=== PATIENT | female | born 1980 | race Caucasian/White ===

== ENCOUNTER → 2017-02-16 | Outpatient (CLI) | payer OTHER ==
[~2017-02-16] MED LIST: PERCOCET 325 MG1 TA2 PO; PRENATAL1 TA1 PO; ZANTAC 150MG T150 MG PO; ZOLOFT 50MG50 MG PO
== END ==
LOC: COL.RAD 07:07
DX: N28.89 Other specified disorders of kidney and ureter (principal); Z90.49 Acquired absence of other specified parts of digestive tract

== ENCOUNTER 2019-03-14 15:45 | Outpatient (RCR) | payer BC | END 2019-04-17 11:33 | disposition home or self-care (01) | LOC: WSC 15:45 | DX: R42 Dizziness and giddiness (principal) ==

== ENCOUNTER → 2019-05-31 | Outpatient (CLI) | payer BC | LOC: MC.RAD 08:35 | DX: Z12.31 Encounter for screening mammogram for malignant neoplasm of breast (principal) ==

== ENCOUNTER → 2019-06-08 | Outpatient (CLI) | payer BC | LOC: COL.CARD 13:32 | DX: R00.0 Tachycardia, unspecified (principal); R06.02 Shortness of breath ==

== ENCOUNTER → 2020-07-09 | Outpatient (CLI) | payer BC | LOC: MC.RAD 06-24 13:45 | DX: Z12.31 Encounter for screening mammogram for malignant neoplasm of breast (principal) ==

== ENCOUNTER → 2021-01-13 | Outpatient (CLI) | payer BC ==
[2021-01-13 16:03] LABS: BASO % 0.3 % (0.0-2.0); EOS # 0.1 (0.0-0.7); EOS % 1.5 % (0-4.0); GRAN # 6.2 (1.4-6.5); GRAN % 65.1 % (42.2-75.2); HEMATOCRIT 40.9 % (37.0-47.0); HEMOGLOBIN 13.5 g/dl (12.5-16.0); LYMPH # 2.5 (1.2-3.4); LYMPH % 26.3 % (20.0-51.0); MEAN CELL VOLUME 88 fl (80.0-100.0); MEAN CORPUSCULAR HEMOGLOBIN 29 pg (27.0-31.0); MEAN CORPUSCULAR HGB CONC 33 g/dl (33.0-37.0); MEAN PLATELET VOLUME 9.4 fl (7.4-10.4); MONO # 0.6 (0.1-0.6); MONO % 6.6 % (1.7-9.3); PLATELET COUNT 320 K/mm3 (130-400); RED BLOOD COUNT 4.66 M/mm3 (4.10-5.30); REDCELL DISTRIBUTION WIDTH-CV 12.9 % (11.5-14.5)
[2021-01-13 16:06] LABS: ALBUMIN 4.5 gm/dL (3.5-5.0); BILIRUBIN,TOTAL 0.5 mg/dL (0.0-1.0); CALCIUM 9.4 mg/dL (8.4-10.2); CREATININE, serum 1.35 (0.52-1.25); POTASSIUM 4.1 mmol/L (3.4-5.0)
== END ==
LOC: COL.RAD 14:24
PROVIDERS: Nurse Practitioner Family
DX: N13.2 Hydronephrosis with renal and ureteral calculous obstruction (principal); Z90.49 Acquired absence of other specified parts of digestive tract; Z90.710 Acquired absence of both cervix and uterus

== ENCOUNTER → 2021-08-18 | Outpatient (CLI) | payer BC | LOC: MC.RAD 07:45 | DX: Z12.31 Encounter for screening mammogram for malignant neoplasm of breast (principal) ==

== ENCOUNTER → 2021-12-22 | Outpatient (CLI) | payer BC ==
[2021-12-22 14:52] LABS: BASO % 0.4 % (0.0-2.0); EOS # 0.1 K/mm3 (0.0-0.7); EOS % 1.1 % (0.0-4.0); GRAN # 5.7 K/mm3 (1.4-6.5); GRAN % 66.4 % (42.2-75.2); HEMATOCRIT 41.8 % (37.0-47.0); HEMOGLOBIN 13.7 g/dl (12.5-16.0); LYMPH # 2.3 K/mm3 (1.2-3.4); LYMPH % 26.4 % (20.0-51.0); MEAN CELL VOLUME 87 fl (80.0-100.0); MEAN CORPUSCULAR HEMOGLOBIN 28 pg (27-31); MEAN CORPUSCULAR HGB CONC 33 g/dl (33.0-37.0); MEAN PLATELET VOLUME 9.7 fl (7.4-10.4); MONO # 0.5 K/mm3 (0.1-0.6); MONO % 5.3 % (1.7-9.3); PLATELET COUNT 303 K/mm3 (130-400); RED BLOOD COUNT 4.83 M/mm3 (4.10-5.30); REDCELL DISTRIBUTION WIDTH-CV 13.6 % (11.5-14.5)
[2021-12-22 15:12] LABS: ALANINE AMINOTRANSFERASE 31 U/L (0-55); ALBUMIN 4.2 gm/dL (3.5-5.0); ALKALINE PHOSPHATASE 120 U/L (40-150); ANION GAP 10 mmol/L (7-16); AST,SGOT 27 U/L (5-34); BILIRUBIN,TOTAL 0.5 mg/dL (0.2-1.2); BLOOD UREA NITROGEN 9 mg/dL (7-19); CALCIUM 9.4 mg/dL (8.4-10.2); CARBON DIOXIDE 24 mmol/L (22-29); CHLORIDE 106 mmol/L (98-107); CREATININE, serum 0.77 mg/dL (0.57-1.11); GLUCOSE 91 mg/dL (70-99); POTASSIUM 3.8 mmol/L (3.5-4.5); SODIUM 140 mmol/L (136-145); TOTAL PROTEIN 8.1 gm/dL (6.2-8.1)
[2021-12-22 15:32] LABS: TSH w REFLEX 2.171 uIU/mL (0.350-4.940)
[2021-12-22 15:35] LABS: TROPONIN-I < 0.010 ng/mL (0.00-0.033)
== END ==
LOC: COL.LAB 14:13
PROVIDERS: Family Medicine
DX: R07.9 Chest pain, unspecified (principal)

== ENCOUNTER → 2021-12-22 | Outpatient (CLI) | payer BC | LOC: COL.RAD 15:56 | DX: K76.0 Fatty (change of) liver, not elsewhere classified (principal) | CPT/HCPCS: Q9967 ==

== ENCOUNTER → 2022-07-14 | Outpatient (CLI) | payer BC | LOC: COL.CARD 09:52 | DX: R00.2 Palpitations (principal) ==

== ENCOUNTER 2023-02-11 21:07 | Emergency (ER) | payer OTHER ==
[~2023-02-11] VITALS: Ht 162.6 cm; Wt 109.1 kg
[~2023-02-11 21:07] MED LIST changes: +LIPITOR20 MG PO; +PAMELOR 25MG25 MG PO; +PRILOSEC 20MG20 MG PO; +PRILOSEC10 MG PO; +PRINIVIL5 MG PO; +TOPROL XL 25MG25 MG PO; +ZOLOFT 100MG100 MG PO
[2023-02-11 21:19] VITALS: TEMP 98
[2023-02-11 22:00] LABS: BASO # 0.1 K/mm3 (0.0-0.2); BASO % 0.5 % (0.0-2.0); EOS # 0.1 K/mm3 (0.0-0.7); EOS % 0.7 % (0.0-4.0); GRAN # 7.3 K/mm3 (1.4-6.5); GRAN % 70.7 % (42.2-75.2); HEMATOCRIT 40.8 % (37.0-47.0); LYMPH # 2.2 K/mm3 (1.2-3.4); LYMPH % 21.4 % (20.0-51.0); MEAN CELL VOLUME 88 fl (80.0-100.0); MEAN CORPUSCULAR HEMOGLOBIN 30 pg (27-31); MEAN CORPUSCULAR HGB CONC 34 g/dl (33.0-37.0); MEAN PLATELET VOLUME 9.9 fl (7.4-10.4); MONO # 0.6 K/mm3 (0.1-0.6); MONO % 6.2 % (1.7-9.3); PLATELET COUNT 292 K/mm3 (130-400); RED BLOOD COUNT 4.64 M/mm3 (4.10-5.30); REDCELL DISTRIBUTION WIDTH-CV 12.9 % (11.5-14.5)
[2023-02-11 22:15] LABS: ALBUMIN 4.2 gm/dL (3.5-5.0); BILIRUBIN,TOTAL 0.2 mg/dL (0.2-1.2); CREATININE, serum 0.83 mg/dL (0.57-1.11); POTASSIUM 3.9 mmol/L (3.5-4.5); TOTAL PROTEIN 7.9 gm/dL (6.2-8.1)
[2023-02-11 23:30] VITALS: BP 127/81; PULSE 97
== END 2023-02-11 23:30 | disposition home or self-care (01) ==
LOC: COL.ER 21:07
PROVIDERS: Nurse Practitioner
DX: S09.90XA Unspecified injury of head, initial encounter (principal); S00.83XA Contusion of other part of head, initial encounter; S60.222A Contusion of left hand, initial encounter; R10.9 Unspecified abdominal pain; Z23 Encounter for immunization; V47.9XXA Unspecified car occupant injured in collision with fixed or stationary object in traffic accident, initial encounter; Y92.410 Unspecified street and highway as the place of occurrence of the external cause
CPT/HCPCS: J2270; J2405; Q9967

== ENCOUNTER 2023-09-14 11:30 | Outpatient (RCR) | payer OTHER, BC | END 2023-09-20 | disposition home or self-care (01) | LOC: WSST | DX: R26.89 Other abnormalities of gait and mobility (principal); F07.81 Postconcussional syndrome; R41.89 Other symptoms and signs involving cognitive functions and awareness ==

== ENCOUNTER 2023-10-03 15:30 | Outpatient (RCR) | payer OTHER, BC | END 2023-10-20 | disposition home or self-care (01) | LOC: WSST | DX: F07.81 Postconcussional syndrome (principal); R48.9 Unspecified symbolic dysfunctions; R26.89 Other abnormalities of gait and mobility; R41.3 Other amnesia ==

== ENCOUNTER → 2023-11-22 | Outpatient (CLI) | payer BC | LOC: MC.RAD 09:28 | DX: Z12.31 Encounter for screening mammogram for malignant neoplasm of breast (principal); N64.89 Other specified disorders of breast ==

== ENCOUNTER → 2023-11-25 | Outpatient (CLI) | payer BC | LOC: MC.RAD 13:46 | DX: N64.89 Other specified disorders of breast (principal) ==

== ENCOUNTER 2024-03-16 12:32 | Day surgery (SDC) | payer BC ==
[~2024-03-16] VITALS: Ht 162.6 cm; Wt 110.5 kg
[~2024-03-16 12:32] MED LIST changes: +LR 1,000 ML IV SCH; +Ondansetron 4 MG/2 ML VIAL IV PRN
[2024-03-16 12:41] VITALS: BP 130/65; PULSE 80; TEMP 97.5
[2024-03-16] MEDS ORDERED: DEPAKOTE ER 50500 MG PO (12:50)
--- NOTE | 2024-03-16 13:07 | NUR ---
The patient ambulated back to [facility] independently using a steady gait and appeared to tolerate the activity well. Vital signs obtained. Consent signed. 20G IV started in right hand with one stick, LR infusing without difficulty. Assessment completed. Home medications reconcilled. Warm blanket provided. Call light is within reach. , Manjit, is at her bedside. Denies any further needs at this time.
[2024-03-16 14:17] VITALS: BP 110/50; PULSE 71; TEMP 97.9
[2024-03-16 14:30] VITALS: BP 116/74; PULSE 75
[2024-03-16 14:45] VITALS: BP 128/79; PULSE 78
--- NOTE | 2024-03-16 16:21 | NUR ---
[id number]: PT TO RECOVERY BAY FROM [facility]O [facility] S/P EGD/COLON WITH BX'S AND POLYPECTOMY A&O, PLACED ON MONITOR, VSS ON RA DENIES COMPLAINT RECEIVED REPORT AND ASSUMED CARE OF PT FROM SUDHEER SAVAGE SPOUSE AT BEDSIDE PROVIDED FOOD/FLUIDS, TOLERATING WELL PT HAS REMAINED A&O, NAD, VSS ON RA, TOLERATING PO, IS WITHOUT SIGNIFICANT COMPLAINT, WITH STEADY GAIT BY THE END OF STAY IV D/C'D. D/C INSTRUCTIONS, FOLLOW UP REVIEWED AND HANDED TO PT. ALL QUESTIONS AND CONCERNS ADDRESSED TO PT SATISFACTION. TAKEN TO EXIT VIA W/C WITH ALL BELONGINGS AND PAPERWORK IN HAND, ASSISTED INTO PASSENGER SEAT OF POV. FAMILY TO DRIVE HOME.
== END 2024-03-16 15:05 | disposition home or self-care (01) ==
LOC: SDCO 12:32
DX: K21.00 Gastro-esophageal reflux disease with esophagitis, without bleeding (principal); K62.1 Rectal polyp; K44.9 Diaphragmatic hernia without obstruction or gangrene; K92.1 Melena; K59.00 Constipation, unspecified; K64.1 Second degree hemorrhoids; K57.30 Diverticulosis of large intestine without perforation or abscess without bleeding; R19.7 Diarrhea, unspecified; Z79.899 Other long term (current) drug therapy; Z87.891 Personal history of nicotine dependence
CPT/HCPCS: J2704; J7120